=== PATIENT | male | born 1990 | race Caucasian/White ===

== ENCOUNTER 2020-07-25 10:23 | Emergency (ER) | payer SELFPAY ==
[~2020-07-25] VITALS: Ht 190.5 cm; Wt 63.6 kg
[2020-07-25 10:27] VITALS: Ht 190.5 cm; Wt 63.6 kg
[2020-07-25 11:06] LABS: BASOPHILS 0.1 % (0-2); EOSINOPHILS 1.5 % (0-7); HEMATOCRIT 41.1 % (42.0-54.0); HEMOGLOBIN 13.8 g/dL (13.5-17.5); IMMATURE GRANULOCYTES 0.1 % (0-5); LYMPHOCYTES 20.5 % (15-50); MCH 29.7 pg (26.0-34.0); MCHC 33.6 g/dL (31.0-37.0); MCV 88.4 fL (80.0-100.0); MEAN PLATELET VOLUME 9.6 fL (7.4-10.4); MONOCYTES 5.5 % (2-11); NEUTROPHILS 72.3 % (40-80); PLATELET COUNT 195 10x3/uL (130-400); RBC 4.65 10x6/uL (4.20-6.10); RDW 13.6 % (11.5-14.5); WBC 8.1 10x3/uL (4.8-10.8)
[2020-07-25 11:25] LABS: APTT 29.2 SECONDS (22.8-39.4); INR 0.98 (0.85-1.17)
[2020-07-25 11:28] LABS: CALC OSMOLALITY 284 mosm/kg (275-300); CALCIUM 9.1 mg/dL (8.5-10.1); CARBON DIOXIDE 27.2 mmol/L (21.0-32.0); CHLORIDE - SERUM 105 mmol/L (98-107); GLUCOSE 96 mg/dL (74-106); POTASSIUM - SERUM 4.1 mmol/L (3.5-5.1); SODIUM 143 mmol/L (136-145); UREA NITROGEN 13 mg/dL (7-18); eGFR NON AFRICAN AMERICAN > 90 mL/min (90-120)
[2020-07-25 11:32] LABS: ALBUMIN 4.3 g/dL (3.4-5.0); ALKALINE PHOSPHATASE 62 U/L (30-120); ALT (SGPT) 14 U/L (10-68); BILIRUBIN - TOTAL 0.33 mg/dL (0.2-1.3)
[2020-07-25] MEDS ORDERED: PENICILLIN V P500 MG PO (12:48)
[2020-07-25] MEDS ORDERED: DICLOFENAC SODI50 MG PO (12:48)
[2020-07-25 13:48] VITALS: BP 128/88
== END 2020-07-25 13:48 | disposition home or self-care (01) ==
LOC: D.ER 10:23
PROVIDERS: Emergency Medicine
DX: H53.9 Unspecified visual disturbance (principal); K08.89 Other specified disorders of teeth and supporting structures; Z72.0 Tobacco use